=== PATIENT | female | born 1990 | race Hispanic/Latino ===

== ENCOUNTER 2020-07-23 00:14 | Emergency (ER) | payer OTHER ==
[~2020-07-23] VITALS: Ht 160 cm; Wt 81.6 kg
[2020-07-23] MEDS ORDERED: DEXAMETHASONE SOD PHOS INJ 4 MG/ML VIAL ONE (01:14)
[2020-07-23] MEDS ORDERED: METHYLPREDNISOLONE SOD SUCC 125 MG/2ML VIAL ONE (01:14)
[2020-07-23] MEDS ORDERED: SODIUM CHLORIDE 0.9% 1000ML 1,000 ML ONE (01:15)
[2020-07-23] MEDS ORDERED: IBUPROFEN 400 MG TAB ONE (01:15)
[2020-07-23] MEDS ORDERED: ACETAMINOPHEN 325 MG TAB ONE (01:15)
[2020-07-23] MEDS ORDERED: CEFTRIAXONE SOD 1 GM/NS 50 ML 50 ML IV ONE (01:30)
[2020-07-23] MEDS ORDERED: AZITHROMYCIN 500MG/NS 250 ML 250 ML IV ONE (01:30)
[2020-07-23] MEDS ORDERED: ALBUTEROL/IPRATROPIUM 3 ML NEB ONE (01:58)
[2020-07-23] MEDS ORDERED: IBUPROFEN 400 MG TAB PO ONE (02:00)
[2020-07-23] MEDS ORDERED: METHYLPREDNISOLONE SOD SUCC 125 MG/2ML VIAL IV ONE (02:00)
[2020-07-23] MEDS ORDERED: ACETAMINOPHEN 325 MG TAB PO ONE (02:00)
[2020-07-23] MEDS ORDERED: SODIUM CHLORIDE 0.9% 1000ML 1,000 ML IV ONE (02:00)
[2020-07-23 02:34] LABS: INR 0.98; PROTHROMBIN TIME 13.6 seconds (11.9-14.5)
[2020-07-23] MEDS ORDERED: ALBUTEROL/IPRATROPIUM 3 ML NEB NEB ONE (03:00)
== END 2020-07-23 05:15 | disposition other institution (70) ==
LOC: FSED 01:20
DX: U07.1 COVID-19 (principal); R09.02 Hypoxemia; J18.9 Pneumonia, unspecified organism; R06.03 Acute respiratory distress; E86.0 Dehydration
CPT/HCPCS: 36415; 71046; 80048; 80076; 81003; 81025; 82553; 83880; 84484; 85025; 85379; 85610; 87040; 93005; 99284; J1100; J2930; J7030; U0002